=== PATIENT | female | born 1975 | race Caucasian/White ===

== ENCOUNTER → 2020-10-28 16:12 | Outpatient (REF) | payer OTHER, SELFPAY | LOC: ANHLAB 16:12 | PROVIDERS: PCP Physician Assistant; Visit Provider Nurse Practitioner | DX: C44.01 Basal cell carcinoma of skin of lip (principal) | CPT/HCPCS: 88305 ==

== ENCOUNTER → 2020-11-25 07:24 | Outpatient (REF) | payer OTHER, SELFPAY | LOC: ANHLAB 07:24 | PROVIDERS: PCP Physician Assistant; Visit Provider Nurse Practitioner | DX: C44.01 Basal cell carcinoma of skin of lip (principal) | CPT/HCPCS: 88305; 88331 ==

== ENCOUNTER → 2021-07-29 14:50 | Outpatient (REF) | payer OTHER, SELFPAY | LOC: ANHLAB 14:50 | PROVIDERS: PCP Physician Assistant; Visit Provider Nurse Practitioner | DX: L81.4 Other melanin hyperpigmentation (principal) | CPT/HCPCS: 88305 ==

== ENCOUNTER 2022-08-20 15:05 | Outpatient (NON) | payer OTHER, SELFPAY | END 2022-08-20 15:06 | disposition home or self-care (01) | LOC: ANHLAB 15:07 | PROVIDERS: PCP Physician Assistant; Visit Provider Nurse Practitioner | DX: D49.2 Neoplasm of unspecified behavior of bone, soft tissue, and skin (principal) | CPT/HCPCS: 88305 ==

== ENCOUNTER 2022-08-27 13:22 | Outpatient (NON) | payer OTHER, SELFPAY | END 2022-08-27 13:23 | disposition home or self-care (01) | PROVIDERS: PCP Physician Assistant; Visit Provider Nurse Practitioner | DX: C44.519 Basal cell carcinoma of skin of other part of trunk (principal) | CPT/HCPCS: 88305; 88342 ==

== ENCOUNTER 2024-02-25 01:08 | Day surgery (SDC) | payer BC, OTHER, SELFPAY ==
[2024-02-03 13:48] VITALS: BMI 24.3
[2024-02-25 06:48] VITALS: BP 123/87; PULSE 70; RESP 16; TEMP 36.5; O2SAT 100
[2024-02-25] MEDS: LACTATED RINGERS 1,000 ML 150 ML IV CONT (06:56)
--- NOTE | 2024-02-25 07:30 | WPDANESEPPF ---
Anes - Initial Pre Proc Eval Procedure: Operation Date: 02/25/24 08:00 Proposed Procedures p Screening Colonoscopy - Rodrigo Partida MD Date/Time: 02/25/24 07:30 Surgeon: Rodrigo Partida MD Pre Op Diagnosis: neoplasm screening Patient Data Age: 48 Gender: F Height: 1.68 m Weight: 65.6 kg Last Vital Signs Temp 97.7 F 02/25/24 06:48 Pulse 70 02/25/24 06:48 Resp 16 02/25/24 06:48 BP 123/87 02/25/24 06:48 Pulse Ox 100 02/25/24 06:48 O2 Del Method Room Air 02/25/24 06:48 Allergies Allergy/AdvReac Type Severity Reaction Status Date / Time No Known Allergies Allergy Verified 02/25/24 06:47 Home Medications Medication Instructions Recorded Confirmed Type No Home Medications 05/07/20 02/03/24 History Patient hx anesthesia problems: none Family hx anesthesia problems: none Results Review: All pre-operative results and documents have been reviewed as part of the pre-operative evaluation. [facility] Surgical History Surgical History History of cholecystectomy History of hysterectomy Social History Social History Smoking status: Never smoker Alcohol intake: never Substance use: never Substance use type: does not use Living arrangements: with family Spiritual care concerns: No Anes - Eval Final PreProcedure Day of Procedure 02/25/24 07:30 Patient weight: normal Heart: regular rate and rhythm Lungs: clear to auscultation Airway: Mallampati scale class II Neurological: alert and oriented Last oral intake: >/= 8 hours ASA classification: II Emergent: no Anesthetic plan: proceed Anesthesia type and monitoring: general GIVS and standard monitoring Results Review: All pre-operative results and documents have been reviewed as part of the pre-operative evaluation. Informed Consent: The patient's anesthetic plan and its attendant risks and benefits were discussed with the patient/family/POA. Questions were solicited and answers provided to the satisfaction of the patient/family/POA.
--- NOTE | 2024-02-25 07:44 | PM.HPGS ---
History of Present Illness History of Present Illness Consent: Risks, benefits, and alternatives have been discussed and questions answered. Patient agrees to proceed with procedure. Chief complaint: neoplasm screening Narrative: Shani August is a 48 year old female here for first screening colonoscopy Review of Systems Review of Systems: All systems reviewed & are unremarkable except as noted in HPI and below PMFSH Past Medical History Medical History (Updated 02/25/24 @ 07:47 by Rodrigo Partida MD) Colon cancer screening Surgical History Surgical History History of cholecystectomy History of hysterectomy Social History Social History Smoking status: Never smoker Alcohol intake: never Substance use: never Substance use type: does not use Living arrangements: with family Spiritual care concerns: No Meds Home Medications and Allergies Home Medications Medication Instructions Recorded Confirmed Type No Home Medications 05/07/20 02/03/24 History Allergies Allergy/AdvReac Type Severity Reaction Status Date / Time No Known Allergies Allergy Verified 02/25/24 06:47 Vital Signs Vital Signs - 24 hr 02/25/24 06:48 Temperature 97.7 F Pulse Rate 70 Respiratory Rate 16 Blood Pressure 123/87 Pulse Oximetry 100 Oxygen Delivery Room Air Exam Const: General: comfortable and no acute distress HENMT: Face/Nose/Sinus: Normal nares present Eyes: General: appearance normal, both eyes and all related structures Neck: Neck: no JVD Resp: Auscultation: clear to auscultation bilaterally Cardio: Rate: regular rate Rhythm: regular rhythm GI: Inspection: non-distended GI Palp: Yes Soft to palpation Skin: General skin exam: normal color Neuro: General: gait normal Speech: normal speech Extrem: General: normal to inspection Psych: Mental Status: mental status grossly normal Assessment and Plan Assessment and plan (1) Colon cancer screening: Code(s): Z12.11 - Encounter for screening for malignant neoplasm of colon Status: Acute Assessment and Plan: colonoscopy
[2024-02-25 07:59] VITALS: BP 107/70; PULSE 67; RESP 20; O2SAT 100
[2024-02-25 08:09] VITALS: BP 121/74; PULSE 64; RESP 18; O2SAT 100
[2024-02-25 08:19] VITALS: BP 124/81; PULSE 70; RESP 18; O2SAT 100
== END 2024-02-25 08:26 | disposition home or self-care (01) ==
PROVIDERS: PCP Physician Assistant; Visit Provider Internal Medicine Gastroenterology
PROC: 0DJD8ZZ Inspection of Lower Intestinal Tract, Via Natural or Artificial Opening Endoscopic (ICD-10-PCS; CPT 45378; principal; 2024-02-25 08:00)
DX: Z12.11 Encounter for screening for malignant neoplasm of colon (principal); K64.8 Other hemorrhoids
CPT/HCPCS: 45378; J2704; J7120

== ENCOUNTER 2024-10-25 16:17 | Emergency (ER) | payer BC, OTHER, SELFPAY ==
--- NOTE | ~2024-10-25 | XR_ITS ---
EXAMINATION: XR chest 2V 10/25/2024 16:39 INDICATION: Cough PROCEDURE: 2 view chest COMPARISON: No prior studies for comparison. FINDINGS: The lungs are clear. The cardiomediastinal silhouette is within normal limits. There are no pleural effusions. There is no pneumothorax suspected. IMPRESSION: 1: NO ACUTE CARDIOPULMONARY DISEASE. Reviewed, dictated and finalized at location A.
[2024-10-25 16:24] VITALS: BP 139/87; PULSE 106; RESP 18; TEMP 37.1; O2SAT 98
--- NOTE | 2024-10-25 16:27 | ED_ITS ---
HPI - URI/Sore Throat General Chief Complaint: Upper Respiratory Infection Stated Complaint: chest pain and coughing Time Seen by Provider: 10/25/24 16:27 Source: patient Mode of arrival: ambulatory Limitations: no limitations History of Present Illness HPI Narrative: 49-year-old female presents with complaint of cough, chest congestion for 3 weeks. Called her primary care regarding symptoms and was prescribed prednisone and azithromycin. Finished antibiotics 3 days ago and continues to have symptoms. Also complaining of sinus pressure and tenderness. Takes an allergy medication daily. Today at work began feeling short of breath. History of pleurisy. Complaining of left-sided back pain with coughing. No respiratory distress noted. All all systems reviewed and negative except as noted above. Related Data Allergies Allergy/AdvReac Type Severity Reaction Status Date / Time No Known Allergies Allergy Verified 02/25/24 06:47 Review of Systems Review of Systems: CONSTITUTIONAL: Denies fever, chills, or sweats. Reports fatigue. EYES: Denies visual changes, redness, or discharge. ENT: Reports rhinorrhea, congestion, sinus pressure, postnasal drainage. Deniessore throat, or otalgia. CARDIOVASCULAR: Denies chest pain, palpitations, or edema. RESPIRATORY: Reports cough, chest congestion, dyspnea with exertion GASTROINTESTINAL: Denies abdominal pain, nausea, vomiting, or diarrhea. GENITOURINARY: Denies dysuria or hematuria. SKIN: Denies rash or itching. MUSCULOSKELETAL: Denies back pain, joint pain, or myalgia. NEUROLOGIC: Denies headache, numbness, or weakness. PSYCHIATRIC: Denies anxiety or depression. All other systems reviewed are negative, except as documented in HPI. [facility] Past Medical History Medical History (Updated 10/25/24 @ 16:51 by Catrina Romero NP) Colon cancer screening Surgical History Surgical History History of hysterectomy History of cholecystectomy Social History Social History Smoking status: Never smoker Alcohol intake: never Substance use: never Substance use type: does not use Living arrangements: with family Spiritual care concerns: No Comments At time of signature, agree with nursing past medical, surgical, social and family history. There is no relevant family history pertinent to the presenting complaint. Exam Narrative: GENERAL: This is a well-nourished, well-developed patient, in no apparent distress. HEAD: normocephalic, atraumatic. EYES: PERRL. Sclera clear/white. Vision is grossly intact. EARS: External ears normal, auditory canals clear and without drainage, TMs normal without perforation. Hearing grossly intact. NOSE: External nose normal with Congestion, purulent nasal drainage, erythema and swelling to bilateral nares. THROAT: Mucous membranes moist, Erythematous with postnasal drainage NECK: Neck supple, non-tender without lymphadenopathy, masses or thyromegaly. CARDIOVASCULAR: Regular rate and rhythm without murmurs, gallops, or rubs. RESPIRATORY: decreased to right lower lung field otherwise clear. Breath sounds equal bilaterally. No wheezes, rales, or rhonchi. SKIN: warm, Dry, intact with no suspicious lesions or rash, good texture and turgor. NEURO: awake, alert, and oriented to person, place and time. There were no obvious focal neurologic abnormalities. EXTREMITIES: No joint tenderness, effusion, or edema noted. Course Course Level of Care: Express Care Visit Vital Signs Vital signs: Vital Signs Temperature 37.1 C 10/25/24 16:24 Pulse Rate 106 H 10/25/24 16:24 Respiratory Rate 18 10/25/24 16:24 Blood Pressure 139/87 10/25/24 16:24 Pulse Oximetry 98 10/25/24 16:24 Oxygen Delivery Room Air 10/25/24 16:24 Temperature 37.1 C 10/25/24 16:24 Pulse Rate 106 H 10/25/24 16:24 Respiratory Rate 18 10/25/24 16:24 Blood Pressure 139/87 10/25/24 16:24 Pulse Oximetry 98 10/25/24 16:24 Oxygen Delivery Room Air 10/25/24 16:24 reviewed MDM - URI/Sore Throat MDM Narrative Medical decision making narrative: normal chest x-ray. Discussed results with patient. Will treat patient with antibiotic for bacterial sinusitis due to duration of symptoms and exam findings. No respiratory distress noted. Patient well-appearing, nontoxic. Please be advised this is a medical document. It is intended for [id number] communication. It is written in medical language and may contain unfamiliar abbreviations or verbiage. Medical documents are intended to carry relevant information, facts as evident, and the clinical opinion of the practitioner at the time of the encounter. This report may have been done utilizing a voice recognition system. Attempts have been made to correct errors. However, there may be uncorrected grammatical, spelling, and recognition errors present. The file time of this note does not necessarily represent the time of service. Differential Diagnosis Differential diagnosis: Likely upper respiratory infection, sinusitis, viral infection and bronchitis Imaging Data My impression: agree with radiologist Radiologist's impression: EXAMINATION: XR chest 2V 10/25/2024 16:39 INDICATION: Cough PROCEDURE: 2 view chest COMPARISON: No prior studies for comparison. FINDINGS: The lungs are clear. The cardiomediastinal silhouette is within normal limits. There are no pleural effusions. There is no pneumothorax suspected. IMPRESSION: 1: NO ACUTE CARDIOPULMONARY DISEASE. Discharge Plan Discharge Clinical Impression: Acute bacterial sinusitis Acute bronchitis Qualifiers: Bronchitis organism: unspecified organism Qualified Code(s): J20.9 - Acute bronchitis, unspecified Patient Disposition: Home Condition: Stable Instructions: Antibiotic Form, Acute Bronchitis (ED) Additional Instructions: Your chest x-ray was normal today. Take medications as prescribed. Purchase [id number] Mucinex DM and take as directed on packaging. Place cool mist humidifier in bedroom where you sleep. Drink at least 64 oz of water a day. See your primary care physician if symptoms are not improving. Patient Language: Mexican Prescriptions: New albuterol sulfate 90 mcg/actuation HFA aerosol inhaler 2 puff inhalation Q4-6H PRN (Reason: shortness of breath or wheezing) Qty: 8.5 0RF amoxicillin-pot clavulanate 875-125 mg tablet 1 tablet PO Q12H 7 Days Qty: 14 0RF Follow-up/Referrals: Eva,ELIDA Caldwell [Primary Care Provider] - Time of Disposition: 16:49
--- OUTSIDE RECORDS SUMMARY | 2024-10-25 17:08 | XMS_ITS | Clinical Summary ---
Author Organization [facility] Address [facility] [place] [address] Care Team Providers Care Air Box Tester Name Role Phone Melchor Schrader MD Primary Care Provider [phone] Family History Medical History Relation Comments Breast Cancer Neg Hx Social History Tobacco Use Types Packs/Day Years Used Date Smoking Tobacco: Never Assessed Comments Unknown Sex and Gender Information Value Date Recorded Sex Assigned at Not on file Legal Sex Female 8:23 PM CDT Gender Identity Not on file Sexual Orientation Not on file Last Filed Vital Signs Vital Sign Reading Time Taken Comments Blood Pressure 104/70 12/14/2012 7:30 AM CDT Pulse 99 12/14/2012 7:30 AM CDT Temperature - - Respiratory Rate - - Oxygen Saturation - - Inhaled Oxygen Concentration - - Weight 60.5 kg (133 lb 6 oz) 12/14/2012 7:30 AM CDT Height 162.6 cm (5' 4 ) 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 Body Mass Index 21.53 12/14/2012 7:30 AM CDT Plan of Treatment Health Maintenance Due Date Last Done Comments Cervical Cancer Screening Pap Smear (Age 30 to 64) Every 3 Years 1974 Colorectal Cancer Screening Colonoscopy (10 Years) 1974 Annual Physical 1977 DTaP, Tdap and Td Vaccines (6 - Tdap) 1985 11/15/1979, 08/25/1976, 05/18/1975, Additional history exists Hepatitis C 1992 Cervical Cancer Screening Pap with HPV Testing (Age 30 to 64) Every 5 Years 2004 Cervical Cancer Screening with HPV 2004 COVID-19 Vaccine ( - season) 2024 Zoster Vaccines (1 of 2) 2024 Mammogram Screening 02/20/2026 02/21/2024, 01/12/2024, 11/12/2022, Additional history exists Hepatitis B Vaccines Completed 06/20/2013, 01/20/2013, 12/14/2012 Meningococcal B Vaccine Aged Out No l onger eligible based on patient's age to complete this topic Meningococcal Vaccine Aged Out No hamzah jameson eligible based on patient's age to complete this topic Pneumococcal Vaccine: Pediatrics (0 to 5 Years) and At-Risk Patients (6 to 64 Years) Aged Out No longer eligible based on patient's age to complete this topic RSV Immunizations Under 20 Months Aged Out No longer eligible based on patient's age to complete this topic Procedures Procedure Name Priority Date/Time Associated Diagnosis Comments MG DIAG W ASYA RT DIGI Routine 02/21/2024 2:10 PM CDT Abnormal mammogram from Last 3 Months or Most Recently Relevant to Health Maintenance Results * MG DIAG W ASYA RT DIGI (02/21/2024 2:10 PM CDT) Anatomical Region Laterality Modality Breast Right Mammography, Rad iographic Imaging 02/21/2024 2:02 PM CDT Impressions 02/21/2024 2:12 PM CDT ===== IMPRESSION: ===== 1. No mammographic evidence of malignancy. Assessment: ACR BI-RADS 2 - BENIGN FINDING(S) Recommendation: 1:Routine Screening Bilateral Comments: Ordered By: MELCHOR TALBOT Interpreted By: Kieran Walters, 02/21/2024 2:02 PM Narrative 02/21/2024 2:12 PM CDT EXAMINATION: Digital right diagnostic mammogram with 3-D tomosynthesis EXAM DATE/TIME: 02/21/2024 1:41 PM REASON FOR EXAM: Abn martin Follow-up COMPARISON: 01/12/2024. 11/12/2022 TECHNIQUE: Digital diagnostic mammography of the right breast was performed in addition to 3-D Tomosynthesis technique. This study was read with the assistance of a computer-aided detection system. TISSUE DENSITY: There are scattered areas of fibroglandular density. Findings: Previously identified asymmetric tissue in the upper outer quadrant of the right breast is due to parenchymal overlap. No malignant microcalcifications or architectural distortion. Melchor Talbot MD MAMMO Final Resu lt from Last 3 Months or Most Recently Relevant to Health Maintenance Insurance [facility] Care Teams Air Box Tester Relationship Specialty Start Date End Date Melchor Schrader MD [facility] [address] [place] [address] PCP - General OBGYN 10/01/20
--- OUTSIDE RECORDS SUMMARY | 2024-10-25 17:08 | XMS_ITS | Data Portability ---
Author Organization Gamal LOGAN Address [address] [place] [address] Assessment Encounter Date Assessment Date Assessment LastModified by Organization Details LastModified Time 11/02/2023 11/02/2023 Mammogram UTD , due in december pap smear UTD colonoscopy due eye and dental UTD [email or web address] Not available 11/02/2023 09:24:41 Plan of Treatment Reminders Order Date Submit Date Provider Last Modified By Organization Details Last Modified Time Details Appointments ANY 30 2024 08:30A M AVERY Ortega Not available Not available Not available Lab vitamin D, 25-hydrox y, total, serum 2023 024 [place] [facility], [address], [place], [address], 11/04/2023 07:23:01 TSH + free T4, serum 2023 024 [place] [facility], [address], [place], [address], 11/04/2023 07:23:01 lipid panel, serum 2023 024 [place] [facility], [address], [place], [address], 11/04/2023 07:23:02 CMP, serum or plasma 2023 024 [place] [facility], [address], [place], [address], 11/04/2023 07:23:01 CBC w/ auto diff 2023 024 [place] [facility], [address], [place], [address], 11/04/2023 07:23:01 HbA1c (hemoglob in A1c), blood 2023 024 [place] [facility], [address], [place], [address], 11/04/2023 07:23:01 Referral None recorded. Procedures colonosco py screening (PROC) 2023 024 [facility], [address], [address], [place], [address], 05/10/2024 17:47:01 Surgeries None recorded. Imaging None recorded. Medication Orders None recorded. Patient TargetsNo targets recorded. Patient InstructionsNo instructions recorded. Reason for Referral None Reported. Results Created Date Observation Date Name Description Value Unit Range Abnormal Flag Note LastModifiedBy Organization Detail LastModifiedTime 11/02/1911/03/2023 LIPID PANEL W/ CHOL/ HDL RATIO cholesterol, total 235 mg/dL 100-19 9 above high normal Not Available [facility] ([facility]) [address] [place], [address], 11/03/2023 06:18:30 11/02/19 24 11/03/2023 LIPID PANEL W/ CHOL/ HDL RATIO triglyceride s 82 mg/dL 0-149 Not Available [facility] ([facility]) [address] [place], [address], 11/03/2023 06:18:30 11/02/19 24 11/03/2023 LIPID PANEL W/ CHOL/ HDL RATIO HDL cholesterol 86 mg/dL >39 Not Available [facility] ([facility]) [address] [place], [address], 11/03/2023 06:18:30 11/02/19 24 11/03/2023 LIPID PANEL W/ CHOL/ HDL RATIO VLDL cholesterol milo 14 mg/dL 5-40 Not Available [facility] ([facility]) [address] [place], [address], 11/03/2023 06:18:30 11/02/19 24 11/03/2023 LIPID PANEL W/ CHOL/ HDL RATIO LDL chol calc ([facility]) 135 mg/dL 0-99 above high normal Not Available [facility] ([facility]) [address] [place], [address], 11/03/2023 06:18:30 11/02/19 24 11/03/2023 LIPID PANEL W/ CHOL/ HDL RATIO T. chol/HDL ratio 2.7 ratio 0.0-4. 4 T. Chol/ HDL Ratio Men Women 1/2 Avg.R isk 3.4 3.3 Avg.R isk 5.0 4.4 2X Avg.R isk 9.6 7.1 3X Avg.R isk 23.4 11.0 Not Available [facility] ([facility]) [address] [place], [address], 11/03/2023 06:18:30 11/02/19 24 11/03/2023 TSH+F REE T4 TSH 1.290 uIU/m L 0.450- 4.500 Not Available [facility] ([facility]) [address] [place], [address], 11/03/2023 06:18:31 11/02/19 24 11/03/2023 TSH+F REE T4 T4,free(dire ct) 1.06 NG/dL 0.82-1 .77 Not Available [facility] ([facility]) [address] [place], [address], 11/03/2023 06:18:31 11/02/19 24 11/03/2023 COMP. METAB OLIC PANEL (14) glucose 92 mg/dL 70-99 Not Available [facility] ([facility]) [address] [place], [address], 11/03/2023 06:18:31 11/02/19 24 11/03/2023 COMP. METAB OLIC PANEL (14) BUN 17 mg/dL 6-24 Not Available [facility] ([facility]) [address] [facility], [place], [address], 11/03/2023 06:18:31 11/02/19 24 11/03/2023 COMP. METAB OLIC PANEL (14) creatinine 0.98 mg/dL 0.57-1 .00 Not Available [facility] ([facility]) [address] [facility], [place], [address], 11/03/2023 06:18:31 11/02/19 24 11/03/2023 COMP. METAB OLIC PANEL (14) eGFR 71 mL/mi n/1.7 3 >59 Not Available [facility] ([facility]) [address] [facility], [place], [address], 11/03/2023 06:18:31 11/02/19 24 11/03/2023 COMP. METAB OLIC PANEL (14) BUN/creatini ne ratio 17 9-23 Not Available [facility] ([facility]) [address] [place], [address], 11/03/2023 06:18:31 11/02/19 24 11/03/2023 COMP. METAB OLIC PANEL (14) sodium 143 mmol/ L 134-14 4 Not Available [facility] ([facility]) [address] [place], [address], 11/03/2023 06:18:31 11/02/19 24 11/03/2023 COMP. METAB OLIC PANEL (14) potassium 4.7 mmol/ L 3.5-5. 2 Not Available [facility] ([facility]) [address] [place], [address], 11/03/2023 06:18:31 11/02/19 24 11/03/2023 COMP. METAB OLIC PANEL (14) chloride 108 mmol/ L 96-106 above high normal Not Available [facility] ([facility]) [address] [facility] [place], [address], 11/03/2023 06:18:31 11/02/19 24 11/03/2023 COMP. METAB OLIC PANEL (14) carbon dioxide, total 22 mmol/ L 20-29 Not Available [facility] ([facility]) [address] [facility] [place], [address], 11/03/2023 06:18:31 11/02/19 24 11/03/2023 COMP. METAB OLIC PANEL (14) calcium 8.9 mg/dL 8.7-10 .2 Not Available [facility] ([facility]) [address] [facility] [place], [address], 11/03/2023 06:18:31 11/02/19 24 11/03/2023 COMP. METAB OLIC PANEL (14) protein, total 6.8 g/dL 6.0-8. 5 Not Available [facility] ([facility]) [address] [facility] [place], [address], 11/03/2023 06:18:31 11/02/19 24 11/03/2023 COMP. METAB OLIC PANEL (14) albumin 4.2 g/dL 3.9-4. 9 Not Available [facility] ([facility]) [address] [facility] [place], [address], 11/03/2023 06:18:31 11/02/19 24 11/03/2023 COMP. METAB OLIC PANEL (14) globulin, total 2.6 g/dL 1.5-4. 5 Not Available [facility] ([facility]) [address] [facility] [place], [address], 11/03/2023 06:18:31 11/02/19 24 11/03/2023 COMP. METAB OLIC PANEL (14) A/G ratio 1.6 1.2-2. 2 Not Available [facility] ([facility]) [address] [facility], [place], [address], 11/03/2023 06:18:31 11/02/19 24 11/03/2023 COMP. METAB OLIC PANEL (14) bilirubin, total 0.3 mg/dL 0.0-1. 2 Not Available [facility] ([facility]) [address] [place], [address], 11/03/2023 06:18:31 11/02/19 24 11/03/2023 COMP. METAB OLIC PANEL (14) alkaline phosphatase 66 IU/L 44-121 Not Available [facility] ([facility]) [address] [facility], [place], [address], 11/03/2023 06:18:31 11/02/19 24 11/03/2023 COMP. METAB OLIC PANEL (14) AST (SGOT) 19 IU/L 0-40 Not Available [facility] ([facility]) [address] [facility], [place], [address], 11/03/2023 06:18:31 11/02/19 24 11/03/2023 COMP. METAB OLIC PANEL (14) ALT (SGPT) 20 IU/L 0-32 Not Available [facility] ([facility]) [address] [place], [address], 11/03/2023 06:18:31 11/02/19 24 11/03/2023 HEMOG LOBIN A1C hemoglobin A1C 5.5 % 4.8-5. 6 Predi abete s: 5.7 - 6.4 Diabe barbara: >6.4 Glyce krystyna contr ol for adult s with diabe barbara: <7.0 Not Available [facility] ([facility]) [address] [facility], [place], [address], 11/03/2023 06:18:31 11/02/19 24 11/02/2023 CBC WITH DIFFE RENTI AL/PL ATELE T WBC 5.1 x10e3 /uL 3.4-10 .8 Not Available [facility] ([facility]) [address] [facility], [place], [address], 11/03/2023 06:18:32 11/02/19 24 11/02/2023 CBC WITH DIFFE RENTI AL/PL ATELE T RBC 4.46 x10e6 /uL 3.77-5 .28 Not Available [facility] ([facility]) [address] [facility], [place], [address], 11/03/2023 06:18:32 11/02/19 24 11/02/2023 CBC WITH DIFFE RENTI AL/PL ATELE T hemoglobin 13.0 g/dL 11.1-1 5.9 Not Available [facility] ([facility]) [address] [place], [address], 11/03/2023 06:18:32 11/02/19 24 11/02/2023 CBC WITH DIFFE RENTI AL/PL ATELE T hematocrit 40.2 % 34.0-4 6.6 Not Available [facility] ([facility]) [address] [facility], [place], [address], 11/03/2023 06:18:32 11/02/19 24 11/02/2023 CBC WITH DIFFE RENTI AL/PL ATELE T MCV 90 fL 79-97 Not Available [facility] ([facility]) [address] [place], [address], 11/03/2023 06:18:32 11/02/19 24 11/02/2023 CBC WITH DIFFE RENTI AL/PL ATELE T MCH 29.1 pg 26.6-3 3.0 Not Available [facility] ([facility]) [address] [place], [address], 11/03/2023 06:18:32 11/02/19 24 11/02/2023 CBC WITH DIFFE RENTI AL/PL ATELE T MCHC 32.3 g/dL 31.5-3 5.7 Not Available [facility] ([facility]) [address] [facility], [place], [address], 11/03/2023 06:18:32 11/02/19 24 11/02/2023 CBC WITH DIFFE RENTI AL/PL ATELE T RDW 12.5 % 11.7-1 5.4 Not Available [facility] ([facility]) [address] [facility], [place], [address], 11/03/2023 06:18:32 11/02/19 24 11/02/2023 CBC WITH DIFFE RENTI AL/PL ATELE T platelets 308 x10e3 /uL 150-45 0 Not Available [facility] ([facility]) [address] [facility], [place], [address], 11/03/2023 06:18:32 11/02/19 24 11/02/2023 CBC WITH DIFFE RENTI AL/PL ATELE T neutrophils 75 % notest ab. Not Available [facility] ([facility]) [address] [facility], [place], [address], 11/03/2023 06:18:32 11/02/19 24 11/02/2023 CBC WITH DIFFE RENTI AL/PL ATELE T lymphs 16 % notest ab. Not Available [facility] ([facility]) [address] [facility], [place], [address], 11/03/2023 06:18:32 11/02/19 24 11/02/2023 CBC WITH DIFFE RENTI AL/PL ATELE T monocytes 7 % notest ab. Not Available [facility] ([facility]) [address] [facility], [place], [address], 11/03/2023 06:18:32 11/02/19 24 11/02/2023 CBC WITH DIFFE RENTI AL/PL ATELE T eos 2 % notest ab. Not Available [facility] ([facility]) [address] [facility], [place], [address], 11/03/2023 06:18:32 11/02/19 24 11/02/2023 CBC WITH DIFFE RENTI AL/PL ATELE T basos 0 % notest ab. Not Available [facility] ([facility]) [address] [facility], [place], [address], 11/03/2023 06:18:32 11/02/19 24 11/02/2023 CBC WITH DIFFE RENTI AL/PL ATELE T neutrophils (absolute) 3.8 x10e3 /uL 1.4-7. 0 Not Available [facility] ([facility]) [address] [facility], [place], [address], 11/03/2023 06:18:32 11/02/19 24 11/02/2023 CBC WITH DIFFE RENTI AL/PL ATELE T lymphs (absolute) 0.8 x10e3 /uL 0.7-3. 1 Not Available [facility] ([facility]) [address] [facility], [place], [address], 11/03/2023 06:18:32 11/02/19 24 11/02/2023 CBC WITH DIFFE RENTI AL/PL ATELE T monocytes(ab solute) 0.4 x10e3 /uL 0.1-0. 9 Not Available [facility] ([facility]) [address] [facility], [place], [address], 11/03/2023 06:18:32 11/02/19 24 11/02/2023 CBC WITH DIFFE RENTI AL/PL ATELE T eos (absolute) 0.1 x10e3 /uL 0.0-0. 4 Not Available [facility] ([facility]) [address] [facility], [place], [address], 11/03/2023 06:18:32 11/02/19 24 11/02/2023 CBC WITH DIFFE RENTI AL/PL ATELE T baso (absolute) 0.0 x10e3 /uL 0.0-0. 2 Not Available [facility] ([facility]) [address] [facility], [place], [address], 11/03/2023 06:18:32 11/02/19 24 11/02/2023 CBC WITH DIFFE RENTI AL/PL ATELE T immature granulocytes 0 % notest ab. Not Available [facility] ([facility]) [address] [facility], [place], [address], 11/03/2023 06:18:32 11/02/19 24 11/02/2023 CBC WITH DIFFE RENTI AL/PL ATELE T immature grans (abs) 0.0 x10e3 /uL 0.0-0. 1 Not Available [facility] ([facility]) [address] [facility], [place], [address], 11/03/2023 06:18:32 11/02/19 24 11/03/2023 VITAM IN D, 25-HY DROXY vitamin D, 25-hydroxy 58.0 NG/mL 30.0-1 00.0 Vitam in D defic iency has been defin ed by the Insti tute of Medic ine and an Endoc rine Socie ty pract ice guide line as a level of serum 25-OH vitam in D less than 20 ng/mL (1,2) . The Endoc rine Socie ty went on to furth er defin e vitam in D insuf ficie ncy as a level betwe en 21 and 29 ng/mL (2). 1. IOM (Inst itute of Medic ine). 2010. Dieta ry refer ence intmary alice es for calci um and D. Mireille leon [place]: The Natio nal [facility] Press . 2. Rafael jones MF, Alonso lundberg [place], Bj off-F errar i STEPHENSON, et al. Evalu ation , treat ment, and preve ntion of vitam in D defic iency : an Endoc rine Socie ty clini milo pract ice guide line. JCEM. 2010; 96(7) :1911 -30. Not Available [facility] ([facility]) [address], [place], [address], 11/03/2023 06:18:32 10/26/19 25 10/25/2024 brigidoi jourdan/sridevi szymanski tic resul t No observ ation record ed. EVIE [facility] [place] [address], [place], [address], 10/25/2024 17:47:13 Result Notes None recorded. Procedures Surgical History Date Name Laterality Status Provider Name and Address Organization Details Recorded Time Dilation and Curettage completed Maria Elena Hui MA [facility] 11/02/2023 09:28:30 hysterectomy completed Maria Elena Hui MA OR - [facility] 11/02/2023 09:28:38 Imaging Results Imaging Date Name Status LastModified by Organiz ation Details LastModified Time 10/25/2024 imaging/diagn ostic result active EVIE Warren [facility] [place] [address], [place], [address], 10/25/2024 17:47:13 Procedure Notes None recorded. Medical Equipment None Reported. Medications Name Sig Start Date Stop Date Status Note LastModified by Organization Details LastModified Time oxybutynin chloride ER 10 mg tablet,exten ded release 24 hr TAKE 1 TABLET BY MOUTH EVERY DAY 11/01 completed Not Available Not Available Not Available benzonatate 200 mg capsule TAKE 1 CAPSULE BY MOUTH THREE TIMES DAILY NEEDED 11/01 completed Not Available Not Available Not Available prednisone 20 mg tablet Take 2 tablets every day by oral route for 5 days. 2024 active Not Available Not Available Not Avai lable Zithromax Z-Broderick 250 mg tablet TAKE 2 TABLETS (500 MG) BY ORAL ROUTE ONCE DAILY FOR 1 DAY THEN 1 TABLET (250 MG) BY ORAL ROUTE ONCE DAILY FOR 4 DAYS 2024 active Not Available Not Available Not Avai lable Vitals Date Recorded Body height Body mass index (BMI) Body weight Respiratory rate Oxygen saturation Oxygen saturation in Arterial blood by Pulse oximetry Heart rate Systolic blood pressure Diastolic blood pressure Provider Name and Address Organization Details Last Updated DateTime 167.64 cm 24.7 kg/m2 49327.7 8 g 20 /min 99 % 99 % 80 /min 132 mm[Hg] 82 mm[Hg] Nat Hope MA [facility] 09:09:15 Date Recorded Systolic blood pressure Diastolic blood pressure Systolic blood pressure Diastolic blood pressure Provider Name and Address Organization Details Last Updated DateTime 11/02/2023 128 mm[Hg] 82 mm[Hg] 120 mm[Hg] 86 mm[Hg] AVERY Ortega Attn: Accounting ,[address] [facility], [place], [address] , [facility] 09:23:22 Social History Question Answer Notes LastModified by Organizat ion Details LastModified Time Tobacco Smoking Status Former Smoker Nat Hope MA null, [facility] 11/02/2023 09:06:45 Do You Have An Advance Directive? No Information not available 11/02/2023 What Is Your Level Of Alcohol Consumption? Occasional Information not available 11/02/2023 Are You Blind Or Do You Have Difficulty Seeing? No Information not available 11/02/2023 What Is Your Level Of Caffeine Consumption? Occasional Daily Information not available 11/02/2023 In The 14 Days Before Symptom Onset, Have You Had Close Contact With A Laboratory-confir med COVID-19 While That Case Was Ill? No Information not available 11/02/2023 In The 14 Days Before Symptom Onset, Have You Had Close Contact With A Person Who Is Under Investigation For COVID-19 While That Person Was Ill? No Information not available 11/02/2023 Have You Been To An Area Known To Be High Risk For COVID-19? No Information not available 11/02/2023 Are You Deaf Or Do You Have Serious Difficulty Hearing? No Information not available 11/02/2023 What Type Of Diet Are You Following? REGULAR Information not available 11/02/2023 Are There Any Guns Present In Your Home? No Information not available 11/02/2023 What Was The Date Of Your Most Recent Tobacco Screening? 11/02/2023 Information not available 11/02/2023 What Is Your Current Pack Years? 10-19packyears Information not available 11/02/2023 Do You Use Your Seat Belt Or Car Seat Routinely? Yes Information not available 11/02/2023 Do You Have Smoke And Carbon Monoxide Detectors In Your Home? Yes Information not available 11/02/2023 At What Age Did You Start Smoking Tobacco? 15 Information not available 11/02/2023 How Much Tobacco Do You Smoke? No Information not available 11/02/2023 Do You Use Sunscreen Routinely? Yes Information not available 11/02/2023 Has Tobacco Cessation Counseling Been Provided? Yes Information not available 11/02/2023 On What Date Was Tobacco Cessation Counseling Provided? 11/02/2023 Information not available 11/02/2023 Do You Or Have You Ever Used Any Other Forms Of Tobacco Or Nicotine? No Information not available 11/02/2023 Sex: Female Functional Status Question Answer Note LastModified by Organization D etails LastModified Time Are you able to care for yourself? Yes Information not available 11/02/2023 What is your exercise level? Moderate Information not available 11/02/2023 Mental Status None recorded. Family History Nothing Reported. Medical History Condition Response Skin Problems Y Anxiety Disorder Y Allergies Y Gynecological History Statement/Question Response Menses Monthly N Current Control Method Hysterectom y Obstetrics History GPAL:G 2 P 2 0 0 2 Type Value Full Term 2 Induced 0 Spontaneous 0 Premature 0 Living 2 Ectopics 0 Total 2 Past Encounters Encounter ID Performer Location Encounter Start Date Encounter Closed Date Diagnosis/Indication Diagnosis SNOMED-CT Code Diagnosis ICD10 Code Diagnosis Note [id number] AVERY Ortega [facility] [address] [place] [address] 11/02/2023 08:58:05 11/02/2023 09:53:37 Screening for malignant neoplasm of colon 734854587 Z12.11 colonoscop y baseline is due. Cholesterol screening 27 7118428 Z13.220 fasting lipids ordered Diabetes m ellitus screening 228319631 Z13.1 a1c screening due Thyroid di sorder screening 695105401 Z13.29 routine thyroid panel ordered Adult heal th examination 758759039 Z00.00 annual wellness completed. fasting labs ordered for annual review Vitamin D deficiency 347 09041 E55.9 pt requests Vit D on labs as well. Health Concerns Section Related Observation LastModified by Organization Detai ls LastModified Time None Recorded Concern Status LastModified by Organization Details LastModified Time None Recorded Advance Directives Directive N: Payers Encounter Date Sequence Insurance Name Policy Number Policy Salazar Covered Member ID Salazar Member ID Guarantor Name 11/02/2023 1 [place] [id number] Ghada August [id number] Shani August 11/02/2023 2 [employer] [id number] Ronaldo Leee [id number] Shani Mata Notes Date Note Type Note Provider Name and Address Organization Details Recorded Time 11/02/2023 text/html Generic HPI TemplateReported bypatient.Notes:Pt is here to re-establish and have wellness exam. she is not taking any meds and feels good. exercises 5-6 days of running each week. healthy diet. AVERY Ortega Attn: Accounting,[address] [place], [address], [facility] 11/02/2023 10:31:56 OBGyn Episode No OBEpisode recorded.
== END 2024-10-25 16:55 | disposition home or self-care (01) ==
PROVIDERS: Emergency Provider Nurse Practitioner Family; PCP Physician Assistant
DX: J01.90 Acute sinusitis, unspecified (principal); J20.9 Acute bronchitis, unspecified
CPT/HCPCS: 71046; 99213; G0463